=== PATIENT | male | born 1990 | race Hispanic/Latino ===

== ENCOUNTER 2025-07-31 06:49 | Inpatient (IN) | payer SELFPAY ==
[2025-07-31] MEDS ORDERED: Ondansetron PF 4 MG/2 ML Vial ONE (07:35)
[2025-07-31] MEDS ORDERED: Ketorolac Tromethamine 30 MG (1 mL) VIAL ONE (07:35)
[2025-07-31 07:41] LABS: Hematocrit 47.6 % (38.8-50.0); Hemoglobin 15.9 g/dL (13.5-17.5); Mean Corpuscular Hemoglobin 28.0 pg (27.0-33.0); Mean Corpuscular Volume 84.0 fL (81.2-95.1); Platelet Count 241 10x3/uL (150-450); Red Blood Cell (RBC) Count 5.67 10x6/uL (4.32-5.72); White Blood Cell (WBC) Count 7.38 10x3/uL (3.5-10.5)
[2025-07-31 07:50] LABS: INR-International Normal Ratio 1.0; PTT 27.2 sec (22.0-33.0); Prothrombin Time 10.7 sec (9.5-12.1)
[2025-07-31 07:54] LABS: AST (SGOT) 18 U/L (11-34); Albumin 4.5 g/dL (3.1-4.5); Alkaline Phosphatase 95 U/L (40-110); Anion Gap 28 mmol/L (10-20); BUN (Urea Nitrogen) 42 mg/dL (8.9-20.6); Bilirubin, Total 1.0 mg/dL (0.3-1.2); Calc. Creatinine Clearance 0 mL/min (70-130); Calcium 10.0 mg/dL (7.8-10.44); Carbon Dioxide 31 mmol/L (22-29); Chloride 83 mmol/L (98-107); Globulin 5.1 g/dL (2.4-3.5); Glucose 118 mg/dL (70-105); Lipase 168 U/L (8-78); Magnesium 1.7 mg/dL (1.6-2.6); Potassium 3.5 mmol/L (3.5-5.1); Sodium 138 mmol/L (136-145)
[2025-07-31 08:15] LABS: MDiff Complete? YES; Platelet Adequacy Comment Appears Adequate; RBC Morphology Within Normal Limits
[2025-07-31 08:16] LABS: ALT (SGPT) 26 U/L (Less than 45)
[2025-07-31 08:19] LABS: Actual Bicarbonate (HCO3v) 26.4 mEq/L (22-28); Analyzer IN Cardio CS ER; Base Excess 3.9 mEq/L (-2 - +2); Calcium, Ionized (venous) 0.93 mmol/L (1.16-1.32); Chloride (VBG) 88 mmol/L (98-106); Hematocrit-VBG 47 % (42.0-52.0); Hemoglobin (Hb) 15.9 g/dL (13.2-17.3); Potassium (VBG) 3.09 mmol/L (3.70-5.30); Puncture Site Other Site; RapidComm Collect By LAB.CB1; Sodium 134 mmol/L (133-146)
[2025-07-31 08:36] LABS: Acetaminophen Less than 10 mcg/mL (Less than 10); Salicylate Less than 8.0 mg/dL (Less than 8.0)
[2025-07-31 12:52] VITALS: BMI 23.1
[2025-07-31] MEDS ORDERED: Iopamidol 300 61% 100 ML VIAL FS ONE (14:18)
[2025-07-31] MEDS ORDERED: Ketorolac Tromethamine 30 MG (1 mL) VIAL IVP PRN (16:24)
[2025-07-31] MEDS ORDERED: Ondansetron PF 4 MG/2 ML Vial IVP PRN (16:30)
[2025-08-01 05:47] LABS: Hematocrit 39.9 % (38.8-50.0); Hemoglobin 13.1 g/dL (13.5-17.5); Mean Corpuscular Hemoglobin 28.4 pg (27.0-33.0); Mean Corpuscular Volume 86.4 fL (81.2-95.1); Platelet Count 206 10x3/uL (150-450); Red Blood Cell (RBC) Count 4.62 10x6/uL (4.32-5.72); White Blood Cell (WBC) Count 9.97 10x3/uL (3.5-10.5)
[2025-08-01 05:49] LABS: MDiff Complete? YES; Platelet Adequacy Comment Appears Adequate; RBC Morphology Within Normal Limits
[2025-08-01 06:04] LABS: Anion Gap 14 mmol/L (10-20); BUN (Urea Nitrogen) 22 mg/dL (8.9-20.6); Calc. Creatinine Clearance 114 mL/min (70-130); Calcium 9.2 mg/dL (7.8-10.44); Carbon Dioxide 31 mmol/L (22-29); Chloride 95 mmol/L (98-107); Glucose 100 mg/dL (70-105); Magnesium 2.0 mg/dL (1.6-2.6); Potassium 2.8 mmol/L (3.5-5.1); Sodium 137 mmol/L (136-145)
[2025-08-01] MEDS: diphenhydrAMINE 50 MG/ML VIAL IVP PRN (09:13)
[2025-08-01] MEDS: Ondansetron PF 4 MG/2 ML Vial IVP PRN (09:13)
[2025-08-01] MEDS: Potassium Chloride 20 MEQ in Premix 1 BAG IVPB SCH (09:38)
[2025-08-02 04:04] LABS: Magnesium 2.1 mg/dL (1.6-2.6)
[2025-08-02 07:20] LABS: #Basophils 0.03 10x3/uL (0.0-0.2); #Eosinophils 0.03 10x3/uL (0.0-0.5); #Monocytes 0.76 10x3/uL (0.0-1.1); #Neutrophils 3.76 10x3/uL (1.5-8.4); %Basophils 0.5 % (0.0-2.0); %Eosinophils 0.5 % (0.0-6.0); %Lymphocytes 27.3 % (18.0-47.0); %Monocytes 11.8 % (0.0-10.0); %Neutrophils 58.5 % (40.0-75.0); Hematocrit 39.3 % (38.8-50.0); Hemoglobin 12.7 g/dL (13.5-17.5); Mean Corpuscular Hemoglobin 28.4 pg (27.0-33.0); Mean Corpuscular Volume 87.9 fL (81.2-95.1); Platelet Count 198 10x3/uL (150-450); Red Blood Cell (RBC) Count 4.47 10x6/uL (4.32-5.72); White Blood Cell (WBC) Count 6.42 10x3/uL (3.5-10.5)
[2025-08-02 07:44] LABS: Anion Gap 17 mmol/L (10-20); BUN (Urea Nitrogen) 23 mg/dL (8.9-20.6); Calc. Creatinine Clearance 136 mL/min (70-130); Calcium 9.1 mg/dL (7.8-10.44); Carbon Dioxide 22 mmol/L (22-29); Chloride 106 mmol/L (98-107); Glucose 94 mg/dL (70-105); Potassium 3.7 mmol/L (3.5-5.1); Sodium 141 mmol/L (136-145)
[2025-08-02] MEDS ORDERED: Acetaminophen 325 MG TAB PO PRN (08:11)
[2025-08-02 09:36] VITALS: BP 116/70; TEMP 98.1
== END 2025-08-02 10:04 | disposition home or self-care (01) | DRG 389 ==
LOC: CSHERS 06:49 → CSHERHOLD 09:02 → CSHTELE 12:24 → OBSVTOIN 08-01 14:47
PROVIDERS: ADMIT Surgery; ATTEND Surgery
DX: K56.600 Partial intestinal obstruction, unspecified as to cause (principal); N17.9 Acute kidney failure, unspecified; E87.6 Hypokalemia; Z90.2 Acquired absence of lung [part of]; E86.0 Dehydration
CPT/HCPCS: 36415; 71045; 74177; 74250; 80048; 80053; 80307; 82805; 83605; 83690; 83735; 84100; 85025; 85610; 85730; 87040; 93005; 96374; 96375; 96376; G0378; J1200; J1885; J3480; J7120; Q0162; Q9967